=== PATIENT | male | born 1975 | race Caucasian/White ===

== ENCOUNTER 2021-10-21 10:27 | Outpatient (CLI) | payer OTHER, SELFPAY ==
[2021-10-21 12:13] LABS: Bilirubin Neg (Negative); Blood, Urine 250 (Negative); Clarity Slightly Cloudy (Clear); Glucose, Urine (Dipstick) Normal (Negative); Ketone, Urine Negative (Negative); Leukocyte 500 (Negative); Nitrite Negative (Negative); Protein, Urine (Dipstick) 30 mg/dl (Neg-Trace); Specific Gravity, Urine 1.015 (1.002-1.036); Urobilinogen Normal mg/dL (Less than 2)
[2021-10-21 12:18] LABS: Bacteria/HPF 1+ HPF (None Seen); Squamous Epithelial 0-3 HPF (0-3)
[2021-10-21 23:52] LABS: SARS-CoV-2 PCR by NAA Not Detected (NotDetected)
== END 2021-10-21 10:28 | disposition home or self-care (01) ==
LOC: LABBT 10:27
PROVIDERS: ATTEND Urology
DX: Z01.818 Encounter for other preprocedural examination (principal); N20.1 Calculus of ureter; Z20.822 Contact with and (suspected) exposure to COVID-19
CPT/HCPCS: 81001; 87086; 93005; 93010; U0003; U0005

== ENCOUNTER 2021-10-22 07:47 | Day surgery (SDC) | payer OTHER ==
[2021-10-21 11:34] VITALS: BMI 33.5
[2021-10-22] MEDS ORDERED: Iothalamate Meglumine 60% 50 ML VIAL FS ONE (10:03)
[2021-10-22] MEDS ORDERED: Fentanyl 250 MCG/5 ML VIAL ONE (10:04)
[2021-10-22] MEDS ORDERED: Levofloxacin 500 mg/D5W 100 ml Premix Bag ONE (10:08)
[2021-10-22] MEDS ORDERED: PROPOFOL 200 MG/20 ML VIAL ONE (10:17)
[2021-10-22] MEDS ORDERED: Ondansetron PF 4 MG/2 ML Vial ONE (10:17)
[2021-10-22] MEDS ORDERED: Dexamethasone 20 MG/5 ML VIAL ONE (10:17)
[2021-10-22] MEDS ORDERED: Lidocaine 1% PF 5 ML VIAL ONE (10:17)
[2021-10-22] MEDS ORDERED: Phenazopyridine HCl 100 MG TAB ONE (11:23)
[2021-10-22] MEDS ORDERED: Oxybutynin 5 MG TAB ONE (11:23)
[2021-10-22] MEDS ORDERED: HYDROcodone/Acetaminophen 5/325 mg Tablet ONE ×2 (13:25→13:28)
== END 2021-10-22 14:40 | disposition home or self-care (01) ==
LOC: SDC 07:47
PROVIDERS: ATTEND Urology
PROC: 0T768DZ Dilation of Right Ureter with Intraluminal Device, Via Natural or Artificial Opening Endoscopic (ICD-10-PCS; principal; 2021-10-22)
PROC: 0TC38ZZ Extirpation of Matter from Right Kidney Pelvis, Via Natural or Artificial Opening Endoscopic (ICD-10-PCS; principal; 2021-10-22)
DX: N20.0 Calculus of kidney (principal); I10 Essential (primary) hypertension; E66.9 Obesity, unspecified; Z68.33 Body mass index [BMI] 33.0-33.9, adult; Z86.16 Personal history of COVID-19; Z79.899 Other long term (current) drug therapy; Z88.5 Allergy status to narcotic agent; Z88.6 Allergy status to analgesic agent
CPT/HCPCS: 74420; 82365; 88300; C2617; J1100; J1956; J2405; J2704; J3010; Q9961-U8